=== PATIENT | female | born 2000 | race Two or more races ===

== ENCOUNTER 2022-09-04 12:41 | Emergency (ER) | payer MEDICAID ==
[~2022-09-04] VITALS: Ht 160 cm; Wt 48.1 kg
--- NOTE | 2022-09-04 13:00 | NUR ---
RIGHT SIDED FLANK PAIN X 3 DAYS, FEVER SINCE YESTERDAY
--- NOTE | 2022-09-04 13:23 | NUR ---
URINE COLLECTED AND SENT
[2022-09-04] MEDS ORDERED: IV NS 0.9% 1,000 ML BAG IV ONE (13:30)
[2022-09-04] MEDS ORDERED: KETOROLAC TROMETHAMINE INJ 30 MG/ML VIAL IV ONE ×2 (13:30→15:00)
--- NOTE | 2022-09-04 13:33 | NUR ---
IV ESTABLISHED L AC 20G. LABD DRAWN AND SENT
--- NOTE | 2022-09-04 13:38 | NUR ---
PT TAKEN TO CT VIA [facility]
[2022-09-04 14:04] LABS: BASOPHILS # (AUTO) 0.1 K/uL (0.0-0.2); BASOPHILS % (AUTO) 1.4 % (0.0-2.0); EOSINOPHILS % (AUTO) 0.6 % (0.0-6.0); HEMATOCRIT 38 % (33-45); HEMOGLOBIN 11.7 g/dL (11.5-14.8); LYMPHOCYTES # (AUTO) 0.6 K/uL (0.8-4.8); LYMPHOCYTES % (AUTO) 7.8 % (20.0-44.0); MEAN CORPUSCULAR HGB CONC 31 g/dl (31.0-36.0); MEAN CORPUSCULAR VOLUME 76 fL (82-100); MONOCYTES # (AUTO) 1.2 K/uL (0.1-1.30); MONOCYTES % (AUTO) 14.9 % (2.0-12.0); NEUTROPHILS % (AUTO) 75.3 % (43.0-81.0); PLATELET COUNT (AUTO) 221 K/uL (150-450); RED BLOOD CELL COUNT(AUTO) 4.98 MIL/uL (4.0-5.2)
[2022-09-04 14:10] LABS: BILIRUBIN,URINE Negative (NEGATIVE); COLOR,URINE YELLOW (YELLOW); LEUKOCYTE ESTERASE ,URINE Moderate (NEGATIVE); NITRITE, URINE Positive (NEGATIVE); PH,URINE 8.5 (5.0-8.0); PROTEIN,URINE 30 mg/dl (NEGATIVE); UGLUCOSE Negative (NEGATIVE); UROBILINOGEN,URINE 0.2 EU/dL (0.2)
[2022-09-04] MEDS ORDERED: KETOROLAC TROMETHAMINE INJ 30 MG/ML VIAL ONE (14:11)
[2022-09-04 14:21] LABS: ALBUMIN 3.7 g/dL (3.4-5.0); BILIRUBIN,DIRECT 0.1 mg/dL (0.0-0.2); BILIRUBIN,TOTAL 0.8 mg/dL (0.2-1.0); CALCIUM, SERUM 8.7 mg/dL (8.5-10.1); CREATININE 0.8 mg/dL (0.6-1.3); POTASSIUM 3.9 mmol/L (3.5-5.1); TOTAL PROTEIN, SERUM 7.8 g/dL (6.4-8.2)
[2022-09-04 14:23] LABS: BACTERIA,URINE Moderate /HPF (None Seen); RBC,URINE 21-50 /HPF (0-2); SQUAMOUS EPITHELIAL CELL,UR Moderate /HPF (None Seen); WBC,URINE 21-50 /HPF (0-3)
[2022-09-04] MEDS ORDERED: ACETAMINOPHEN 325 MG TABLET PO ONE (15:00)
[2022-09-04] MEDS ORDERED: CEFTRIAXONE 1GM BAG (ER ONLY) 1 GM/50 ML PIGGYBACK IV ONE (15:00)
[2022-09-04] MEDS ORDERED: ACETAMINOPHEN ES 500 MG TABLET ONE (15:01)
[2022-09-04] MEDS ORDERED: CEFTRIAXONE 1GM BAG (ER ONLY) 50 ML IV ONE (15:01)
[2022-09-04] MEDS ORDERED: CEPH500T PO (15:40)
[2022-09-04] MEDS ORDERED: IBUP-1953 PO (15:40)
[2022-09-04 15:50] VITALS: BP 112/74
--- NOTE | 2022-09-04 15:50 | NUR ---
Patient discharged to home in stable condition, ambulating. Written and verbal after care instructions given. Patient verbalizes understanding of instruction.
== END 2022-09-04 15:51 | disposition home or self-care (01) ==
LOC: ER 12:49
DX: N12 Tubulo-interstitial nephritis, not specified as acute or chronic (principal)
CPT/HCPCS: 99285; 74176; 96365; 96361; 96375; 96376; 85025; 80048; 87086; 83690; 80076; 84703; 81001; 36415; J1885 ×2; J7030; J0696

== ENCOUNTER 2025-01-26 20:04 | Emergency (ER) | payer MEDICAID ==
[~2025-01-26] VITALS: Ht 154.9 cm; Wt 52.2 kg
[~2025-01-26 20:04] MED LIST: CEPH500C2 PO; CEPH500T PO; CIPR500S2 PO; IBUP-1953 PO; IBUP-1955 PO
[2025-01-26] MEDS ORDERED: CIPR500T5 PO (21:01)
[2025-01-26] MEDS ORDERED: CIPROFLOXACIN HCL 250 MG TABLET ONE (21:03)
[2025-01-26] MEDS: CIPROFLOXACIN HCL 250 MG TABLET PO ONE (21:04)
[2025-01-26 21:08] VITALS: BP 109/69; TEMP 98.2; O2SAT 98
== END 2025-01-27 00:37 | disposition home or self-care (01) ==
LOC: ER 23:05
DX: N12 Tubulo-interstitial nephritis, not specified as acute or chronic (principal); N39.0 Urinary tract infection, site not specified; Z79.899 Other long term (current) drug therapy